=== PATIENT | male | born 1950 | race Caucasian/White ===

== ENCOUNTER 2019-04-06 18:26 | Observation (INO) ==
--- NOTE | 2019-04-06 18:52 | ERNOTE ---
Dyspnea - Date Date of Service: 04/06/19 - General Presenting Symptoms: shortness of breath Time Seen by Provider: 04/06/19 18:33 Source: patient Exam Limitations: no limitations - Immun/Allergies/Home Medications Immunizations: IMMUNIZATION HX Immunizations Up to Date Yes History of Influenza Vaccine Yes Hx Pneumococcal Vaccination Yes Allergies/Adverse Reactions: Allergies cefprozil [From Cefzil] Allergy (Unknown, Verified 04/06/19 18:44) doxycycline Allergy (Unknown, Verified 04/06/19 18:44) PATIENT STATES HE HAS NEVER TAKEN THIS. gatifloxacin [From Tequin] Allergy (Unknown, Verified 04/06/19 18:44) levofloxacin [From Levaquin] Allergy (Unknown, Verified 04/06/19 18:44) prednisone Allergy (Unknown, Verified 04/06/19 18:44) dicyclomine [From Bentyl] Adverse Reaction (Verified 04/06/19 18:44) shakey, nausea Home Medications: HOME MEDICATIONS calcium carbonate 600 mg calcium (1,500 mg) tablet 600 mg PO DAILY tab 12/23/17 [Last Taken Unknown] magnesium 250 mg tablet See Rx Instructions PO DAILY tab 12/23/17 [Last Taken Unknown] multivitamin,sn-btyd-qwfggirc tablet 1 tab PO DAILY 12/23/17 [Last Taken Unknown] potassium 99 mg tablet See Rx Instructions PO DAILY tab 12/23/17 [Last Taken Unknown] azathioprine 50 mg tablet 50 mg PO DAILY #90 tab 06/21/18 [Last Taken Unknown] budesonide-formoterol HFA 160 mcg-4.5 mcg/actuation aerosol inhaler 2 puff IH BID #18 g 06/21/18 [Last Taken Unknown] cefdinir 300 mg capsule 300 mg PO BID #90 cap 06/21/18 [Last Taken Unknown] cetirizine 10 mg capsule 10 mg PO DAILY #90 cap 06/21/18 [Last Taken Unknown] metronidazole 1 % topical gel with pump 1 applic TP DAILY #165 g 06/21/18 [Last Taken Unknown] sulfamethoxazole 800 mg-trimethoprim 160 mg tablet 1 tab PO BID #90 tab 06/21/18 [Last Taken Unknown] triamcinolone acetonide 0.1 % topical cream 1 applic TP BID #240 g 06/21/18 [Last Taken Unknown] lorazepam 0.5 mg tablet 0.5 mg PO .ac and hs #360 tab 10/04/18 [Last Taken Unknown] fluticasone propionate 50 mcg/actuation nasal spray,suspension 2 spray ANASTACIO BID g 12/04/18 [Last Taken Unknown] triamterene 75 mg-hydrochlorothiazide 50 mg tablet 1 tab PO DAILY #90 tab 12/04/18 [Last Taken Unknown] nebulizers See Dose Instructions .ROUTE .MEDSUPPLY #1 ea 03/16/19 [Last Taken Unknown] ipratropium-albuterol 0.5 mg-3 mg(2.5 mg base)/3 mL nebulization soln 3 ml IH TID #270 ml 03/30/19 [Last Taken Unknown] - History of Present Illness Narrative: The patient is a 68 year old male who presents for abnormal PET scan results which he was notified of this evening. There are associated symptoms of productive cough and dyspnea which has worsened over the past 3 days. The patient denies pain. There are no alleviating factors. There are aggravating factors of activity. Previous treatments have included: albuterol inhaler with improvement. The past medical history includes: asthma, emphysema and HTN. The social history is positive for former smoker. The patient has had no ill contacts. Patient had abnormal CT chest on 04/02/19 and today received outpatient PET scan. Patient was notified of interval development of left pneumothorax noted on PET scan. Patient states 3 days ago he was having a harsh coughing episode in which he developed right subconjunctival hematoma to medial aspect of eye after his coughing fit. Patient states following he developed increased dyspnea. Review of Systems - Review of Systems Constitutional: Present: no symptoms reported. Absent: fever, fatigue EYE: Present: no symptoms reported ENT: Present: no symptoms reported. Absent: ear pain, nasal drainage, sore throat Respiratory: Present: shortness of breath, cough, wheezing Cardiology: Present: no symptoms reported. Absent: chest pain Gastrointestinal/Abdominal: Present: no symptoms reported. Absent: nausea, vomiting, diarrhea, abdominal pain Genitourinary: Present: no symptoms reported. Absent: dysuria Musculoskeletal: Present: no symptoms reported Skin: Present: no symptoms reported. Absent: rash Neurological: Present: no symptoms reported. Absent: headache, dizziness/light- headedness All Other Systems: All systems neg except as marked Medical History (Updated 03/13/19 @ 19:36 by Chris Manning MD) Asthma, severe persistent Onset Date: 11/20/11 Autoimmune hepatitis Onset Date: 05/01/11 Chronic rhinitis Onset Date: Unknown Chronic sinusitis Onset Date: Unknown Emphysema lung Onset Date: Unknown Hyperlipidemia Onset Date: 12/15/10 Hypertension Onset Date: Unknown Nail disorder Onset Date: Unknown dystrophic nails Bronchiectasis Onset Date: Unknown Hypersensitivity pneumonitis Onset Date: 12/02/12 Pneumonia Onset Date: ~02/18/0302/2003 (gram negative with pleural effusion) 11/2005 Surgical History: Surgical History (Updated 12/20/17 @ 08:21 by Mary Lou Finn LPN) History of colonoscopy Onset Date: 02/15/07 02/15/07- WNL 12/03/16- WNL Dr Ochoa History of liver biopsy Onset Date: 04/06/11 [facility]-autoimmune hepatitis History of lung surgery Onset Date: Unknown lung biopsy History of vasectomy Onset Date: Unknown Family History: Family History (Updated 12/20/17 @ 08:16 by Mary Lou Finn LPN) Brother Alive and well Brother No problems noted. Father , age 60 Emphysema lung Mother Asthma Dementia History of sinus problem Sister Alive and well Sister Alive and well Social History: (Last Reviewed 04/06/19 @ 20:28 by JENAE Kay) Social History: Marital status: lives independently: Yes household members: none current occupational status: retired current occupation: retired [employer] Service: No Tobacco: Smoking Status: Former smoker Alcohol: alcohol intake: former Substance Use: substance use type: does not use Physical Exam - Physical Exam General Appearance: Present: wd/wn, alert, mild distress Head Exam: Present: normal inspection, no evidence of injury Eye Exam: Normal inspection: left, Other: right - medial subconjunctival hemorrhage Neck: Present: normal inspection, nontender Respiratory: Present: chest tenderness - diffuse anterior tenderness bilateral, accessory muscle use, decreased breath sounds, wheezing - upper inspiratory wheezing bilateral Cardiovascular/Chest: Present: regular rate, rhythm, no murmur Gastrointestinal/Abdominal: Present: normal bowel sounds, nontender, nondistended, soft, no organomegaly Extremity Exam: Present: no edema Neurological Exam: Present: alert, oriented, normal mood/affect, no motor/sensory deficits Skin Exam: Present: normal color, warm/dry Progress - Date and Time Seen: Date and Time: 04/06/19 18:51 Review of PET scan, portable CXR obtained. Consult with , will review and return call for plan of care. 04/06/19 19:03 Discussed case with , findings compatible with apical pneumonia. Due to patients report of dyspnea will discuss with medicine for observation for serial imaging of monitoring. 04/06/19 19:17 Message left for to discuss patient and admission. 04/06/19 20:00 Case discussed with and will admit for observation with repeat CXR tomorrow. notified of consult with . - Vital Signs Patient's Vital Signs:: I have reviewed the patient's vital signs. Vital Signs: Vital Signs 04/06/19 18:35 Temperature 37.3 C Pulse Rate 99 Respiratory Rate 20 Blood Pressure 138/84 O2 Sat by Pulse Oximetry 94 - X-Ray X-Ray #1 X-Ray: chest Interpretation: Reviewed by me X-ray Comments: IMPRESSION: 1. Reidentified left-sided hydropneumothorax 2. Moderate right pleural effusion. 3. Basilar atelectasis bilaterally superimposed upon edema/fluid overload and emphysema Electronically signed by Harpreet Smith M.D.. - Progress/Reassessment Chief Complaint: Dyspnea Departure Clinical Impression: Pneumothorax on left - Departure Disposition: Still a patient Condition: Stable
[2019-04-06] MEDS: ALBUTEROL SULFATE/IPRATROPIUM 3 ML NEBU IH SCH ×2 (20:35→23:59)
[2019-04-07] MEDS: ALBUTEROL SULFATE/IPRATROPIUM 3 ML NEBU IH SCH (06:10)
--- NOTE | 2019-04-07 11:18 | HPDIS ---
Chief Complaint - Chief Complaint Date of Service: 04/07/19 Time of Service: 08:59 Chief Complaint: Abnormal PET scan History of Present Illness: 68-year-old male with a past medical history hypertension, hyperlipidemia, emphysema, autoimmune hepatitis, asthma, hypersensitivity pneumonitis presents from home with complaint of abnormal PET scan. His primary care provider Dr. Rubio De Dios had ordered the PET scan after an abnormal CT chest found a lung nodule. PET scan was positive for a left sided pneumothorax. He then presented to the emergency department. He states he had been having episodes of worsening productive cough for the past few days and had developed a right subconjunctival hemorrhage. He does not follow with a lost charge card clerk. He was admitted for monitoring of the pneumothorax and repeat chest x-ray in the morning. Medical History (Updated 04/07/19 @ 11:18 by Yanet Harris MD) Asthma, severe persistent Onset Date: 11/20/11 Autoimmune hepatitis Onset Date: 05/01/11 Chronic rhinitis Onset Date: Unknown Chronic sinusitis Onset Date: Unknown Emphysema lung Onset Date: Unknown Hyperlipidemia Onset Date: 12/15/10 Hypertension Onset Date: Unknown Nail disorder Onset Date: Unknown dystrophic nails Bronchiectasis Onset Date: Unknown Hypersensitivity pneumonitis Onset Date: 12/02/12 Pneumonia Onset Date: ~02/18/0302/2003 (gram negative with pleural effusion) 11/2005 Surgical History: Surgical History (Updated 04/07/19 @ 11:18 by Yanet Harris MD) History of colonoscopy Onset Date: 02/15/07 02/15/07- WNL 12/03/16- WNL Dr Ochoa History of liver biopsy Onset Date: 04/06/11 [facility]-autoimmune hepatitis History of lung surgery Onset Date: Unknown lung biopsy History of vasectomy Onset Date: Unknown Family History: Family History (Updated 12/20/17 @ 08:16 by Mary Lou Finn LPN) Brother Alive and well Brother No problems noted. Father , age 60 Emphysema lung Mother Asthma Dementia History of sinus problem Sister Alive and well Sister Alive and well Social History: (Last Reviewed 04/06/19 @ 21:07 by Mervin Lopez RN) Social History: Marital status: lives independently: Yes household members: none current occupational status: retired current occupation: retired [employer]: No Tobacco: Smoking Status: Former smoker Alcohol: alcohol intake: former Substance Use: substance use type: does not use Review Of Systems (GEN) - Review of Systems Generalized/Overall Review: Absent: Fever EENTM: Present: Other - Right subconjunctival hemorrhage Respiratory: Present: Cough. Absent: Shortness of Breath Cardiac: Absent: Chest Pain Abdominal: Absent: Abdominal Pain Misc: All systems neg except as marked Immunizations: IMMUNIZATION HX Immunizations Up to Date Yes History of Influenza Vaccine Yes Hx Pneumococcal Vaccination Yes Allergies/Adverse Reactions: Allergies Allergy/AdvReac Type Severity Reaction Status Date / Time cefprozil [From Cefzil] Allergy Unknown Verified 04/06/19 21:10 doxycycline Allergy Unknown Verified 04/06/19 21:10 gatifloxacin [From Tequin] Allergy Unknown Verified 04/06/19 21:10 levofloxacin [From Levaquin] Allergy Unknown Verified 04/06/19 21:10 prednisone Allergy Unknown Verified 04/06/19 21:10 dicyclomine [From Bentyl] AdvReac jacob, Verified 04/06/19 21:10 nausea Home Medications: HOME MEDICATIONS calcium carbonate 600 mg calcium (1,500 mg) tablet 600 mg PO DAILY tab 12/23/17 [Last Taken Unknown] magnesium 250 mg tablet See Rx Instructions PO DAILY tab 12/23/17 [Last Taken Unknown] multivitamin,uz-fers-msiscpup tablet 1 tab PO DAILY 12/23/17 [Last Taken Unknown] potassium 99 mg tablet See Rx Instructions PO DAILY tab 12/23/17 [Last Taken Unknown] azathioprine 50 mg tablet 50 mg PO DAILY #90 tab 06/21/18 [Last Taken Unknown] budesonide-formoterol HFA 160 mcg-4.5 mcg/actuation aerosol inhaler 2 puff IH BID #18 g 06/21/18 [Last Taken Unknown] cefdinir 300 mg capsule 300 mg PO BID #90 cap 06/21/18 [Last Taken Unknown] cetirizine 10 mg capsule 10 mg PO DAILY #90 cap 06/21/18 [Last Taken Unknown] metronidazole 1 % topical gel with pump 1 applic TP DAILY #165 g 06/21/18 [Last Taken Unknown] sulfamethoxazole 800 mg-trimethoprim 160 mg tablet 1 tab PO BID #90 tab 06/21/18 [Last Taken Unknown] triamcinolone acetonide 0.1 % topical cream 1 applic TP BID #240 g 06/21/18 [Last Taken Unknown] lorazepam 0.5 mg tablet 0.5 mg PO .ac and hs #360 tab 10/04/18 [Last Taken Unknown] fluticasone propionate 50 mcg/actuation nasal spray,suspension 2 spray ANASTACIO BID g 12/04/18 [Last Taken Unknown] triamterene 75 mg-hydrochlorothiazide 50 mg tablet 1 tab PO DAILY #90 tab 12/04/18 [Last Taken Unknown] nebulizers See Dose Instructions .ROUTE .MEDSUPPLY #1 ea 03/16/19 [Last Taken Unknown] ipratropium-albuterol 0.5 mg-3 mg(2.5 mg base)/3 mL nebulization soln 3 ml IH TID #270 ml 03/30/19 [Last Taken Unknown] Exam - Exam Vital Signs: Vital Signs - Last Taken Temp 36.6 C 04/07/19 08:11 Pulse 93 04/07/19 08:11 Resp 16 04/07/19 08:11 BP 128/66 04/07/19 08:11 Pulse Ox 93 04/07/19 08:11 Constitutional: Present: Alert, Cooperative, Well developed, Well nourished, No distress, Middle aged ENT Exam: Present: hearing grossly normal, moist mucous membranes Eye Exam: bilateral eye: normal inspection, PERRL, right eye: conjunctivae pale - Subconjunctival hemorrhage Neck: Present: non-tender, supple, trachea midline. Absent: lymphadenopathy (R), lymphadenopathy (L) Back Exam: Present: normal inspection, no CVA tenderness, no vertebral tenderness Respiratory: Present: lungs clear, no respiratory distress, no accessory muscle use, wheezing - Mild expiratory wheeze in lower lung elena. Absent: crackles, rhonchi Cardiovascular/Chest: Present: normal peripheral pulses, regular rate, rhythm, no edema, no murmur Peripheral Pulses: dorsalis-pedis (R): 1+, dorsalis-pedis (L): 1+ Abdomen: Present: Normal bowel sounds, soft, nontender Extremity: Present: no pedal edema Skin Exam: Present: normal color, warm/dry Neurologic: Present: alert, normal mood/affect Appearance: Present: appropriate appearance, appropriate insight Eye contact: Present: cooperative, good eye contact Thoughts: Present: normal thought pattern, normal mood /affect Assessment/Plan - Narrative Narrative: 68-year-old male with a past medical history hypertension, hyperlipidemia, emphysema, autoimmune hepatitis, asthma, hypersensitivity pneumonitis presents from home with complaint of abnormal PET scan. He was admitted for monitoring of the pneumothorax and repeat chest x-ray in the morning. - Assessment/Plan (1) Pneumothorax on left Problem: Acute (2) Emphysema lung Problem: Chronic Qualifiers: Emphysema type: unspecified Qualified Code(s): J43.9 - Emphysema, unspecified (3) Hyperlipidemia Problem: Chronic Qualifiers: Hyperlipidemia type: unspecified Qualified Code(s): E78.5 - Hyperlipidemia, unspecified (4) Benign essential hypertension Problem: Chronic (1) Pneumothorax on left Problem: Acute (2) Emphysema lung Problem: Chronic Qualifiers: Emphysema type: unspecified Qualified Code(s): J43.9 - Emphysema, unspecified (3) Hyperlipidemia Problem: Chronic Qualifiers: Hyperlipidemia type: unspecified Qualified Code(s): E78.5 - Hyperlipidemia, unspecified (4) Benign essential hypertension Problem: Chronic Description of Stay: 68-year-old male with a past medical history hypertension, hyperlipidemia, emp hysema, autoimmune hepatitis, asthma, hypersensitivity pneumonitis presents from home with complaint of abnormal PET scan. His primary care provider Dr. Rubio De Dios had ordered the PET scan after an abnormal CT chest found a lung nodule. PET scan was positive for a left sided pneumothorax. He then presented to the emergency department. He states he had been having episodes of worsening produ ctive cough for the past few days and had developed a right subconjunctival hemorrhage. He does not follow with a lost charge card clerk. He was admitted for monitoring of the pneumothorax and repeat chest x-ray in the morning. Pneumothorax on repeat chest x-ray was unchanged. Vitals remained stable at rest and with ambulation. He is stable to be discharged home today. He will follow-up with his primary care physician within 1 to 2 weeks. He will also follow-up with [place] pul[facility]ology in the next few weeks. Procedures Performed: none Discharge Location: Home Disposition: Home self-care Condition: Stable Discharge Activity: Activity as tolerated Discharge Diet: Low salt Referrals: Chris Manning MD [Primary Care Provider] - Complete Home Medications List: Complete Home Medication List: calcium carbonate 600 mg calcium (1,500 mg) tablet 600 mg PO DAILY tab 12/23/17 magnesium 250 mg tablet See Rx Instructions PO DAILY tab 12/23/17 multivitamin,wo-idhv-ghybhnyk tablet 1 tab PO DAILY 12/23/17 potassium 99 mg tablet See Rx Instructions PO DAILY tab 12/23/17 azathioprine 50 mg tablet 50 mg PO DAILY #90 tab 06/21/18 budesonide-formoterol HFA 160 mcg-4.5 mcg/actuation aerosol inhaler 2 puff IH BID #18 g 06/21/18 cefdinir 300 mg capsule 300 mg PO BID #90 cap 06/21/18 cetirizine 10 mg capsule 10 mg PO DAILY #90 cap 06/21/18 metronidazole 1 % topical gel with pump 1 applic TP DAILY #165 g 06/21/18 sulfamethoxazole 800 mg-trimethoprim 160 mg tablet 1 tab PO BID #90 tab 06/21/18 triamcinolone acetonide 0.1 % topical cream 1 applic TP BID #240 g 06/21/18 lorazepam 0.5 mg tablet 0.5 mg PO .ac and hs #360 tab 10/04/18 fluticasone propionate 50 mcg/actuation nasal spray,suspension 2 spray ANASTACIO BID g 12/04/18 triamterene 75 mg-hydrochlorothiazide 50 mg tablet 1 tab PO DAILY #90 tab 12/04/18 nebulizers See Dose Instructions .ROUTE .MEDSUPPLY #1 ea 03/16/19 ipratropium-albuterol 0.5 mg-3 mg(2.5 mg base)/3 mL nebulization soln 3 ml IH TID #270 ml 03/30/19
[2019-04-07 13:17] VITALS: BP 145/75
== END 2019-04-07 13:20 | disposition home or self-care (01) ==
LOC: MS 18:26 → ER 18:26
PROVIDERS: ADMIT Internal Medicine; ATTEND Internal Medicine
CPT/HCPCS: 71010; 71020; 71045; 71046; 94640; 94664; 99285; G0378

== ENCOUNTER 2019-11-12 17:47 | Observation (INO) ==
--- NOTE | 2019-11-12 18:27 | ERNOTE ---
Dyspnea - General Time Seen by Provider: 11/12/19 17:52 Source: patient Exam Limitations: no limitations - Immun/Allergies/Home Medications Immunizations: IMMUNIZATION HX Immunizations Up to Date Yes History of Influenza Vaccine Yes Hx Pneumococcal Vaccination Yes Allergies/Adverse Reactions: Allergies cefprozil [From Cefzil] Allergy (Unknown, Verified 11/12/19 18:00) doxycycline Allergy (Unknown, Verified 11/12/19 18:00) PATIENT STATES HE HAS NEVER TAKEN THIS. gatifloxacin [From Tequin] Allergy (Unknown, Verified 11/12/19 18:00) levofloxacin [From Levaquin] Allergy (Unknown, Verified 11/12/19 18:00) prednisone Allergy (Unknown, Verified 11/12/19 18:00) dicyclomine [From Bentyl] Adverse Reaction (Verified 11/12/19 18:00) shakey, nausea Home Medications: HOME MEDICATIONS calcium carbonate 600 mg calcium (1,500 mg) tablet 600 mg PO DAILY tab 12/23/17 [Last Taken Unknown] magnesium 250 mg tablet See Rx Instructions PO DAILY tab 12/23/17 [Last Taken Unknown] multivitamin,[id number] 1 tab PO DAILY 12/23/17 [Last Taken Unknown] cetirizine 10 mg capsule 10 mg PO DAILY #90 cap 06/21/18 [Last Taken Unknown] metronidazole 1 % topical gel 1 applic TP DAILY #60 g 04/16/19 [Last Taken Unknown] triamcinolone acetonide 0.1 % topical cream 1 applic TP BID #240 g 04/16/19 [Last Taken Unknown] azathioprine 50 mg tablet 50 mg PO DAILY #90 tab 06/04/19 [Last Taken Unknown] fluticasone furoate 50 mcg/actuation blister powder for inhalation See Rx Instructions IH .COMPLEX #3 ea 06/04/19 [Last Taken Unknown] lorazepam 0.5 mg tablet 0.5 mg PO .ac and hs #120 tab 06/04/19 [Last Taken Unknown] triamterene 75 mg-hydrochlorothiazide 50 mg tablet 1 tab PO DAILY #90 tab 06/04/19 [Last Taken Unknown] fluticasone propionate 50 mcg/actuation nasal spray,suspension 2 spray ANASTACIO BID #3 ea 07/17/19 [Last Taken Unknown] - History of Present Illness Narrative: Patient is coming to the ER for shortness of breath. He has a history of COPD, has a lung nodule that is being monitored with CTs (last one in July 2019), had a spontaneous pneumo March 2019 that resolved with conservative treatment. He states that at least 6 weeks ago he started to have a decreased appetite, felt full easily and has eaten less. He thinks he lost about 20 pounds since, denies any abdominal pain, denies any diarrhea, denies any vomiting. Over the last 2 weeks or so he has had some intermittent shortness of breath, as well as intermittent temperature up to 100 Fahrenheit at times, had a slight cough for a while, but denies a cough currently. Today he is felt so weak that he did not feel like getting out of bed all day. He denies any fever and chills today, denies any pain today. He can walk about long term across the yard before he has to stop shortness of breath. He has not seen a provider recently, last avoided all social contacts due to the current COVID pandemic. He also has a history of autoimmune hepatitis and is taking medication for that. His story is somewhat vague Initiating event: Denies: upper resp illness, out of meds Frequency of episodes: Reports: occassional episodes Modifying Factors - (Improves): Reports: rest Modifying Factors (Worsens): Reports: activity Associated Symptoms-Dyspnea: Reports: fever/chills. Denies: chest pain/discomfort Prior Treatment: Denies: recently seen, currently on antibiotics Review of Systems - Review of Systems Constitutional: Present: fever, chills, malaise, weight loss ENT: Absent: nose congestion, sore throat Respiratory: Present: shortness of breath, cough Cardiology: Absent: chest pain Gastrointestinal/Abdominal: Absent: nausea, vomiting, diarrhea, abdominal pain Musculoskeletal: Absent: back pain Neurological: Present: weakness - generalized. Absent: headache Medical History (Last Reviewed 11/12/19 @ 18:18 by Lovely Huynh MD) Asthma, severe persistent Onset Date: 11/20/11 Autoimmune hepatitis Onset Date: 05/01/11 Chronic rhinitis Onset Date: Unknown Chronic sinusitis Onset Date: Unknown Emphysema lung Onset Date: Unknown Hyperlipidemia Onset Date: 12/15/10 Hypertension Onset Date: Unknown Nail disorder Onset Date: Unknown dystrophic nails Bronchiectasis Onset Date: Unknown Hypersensitivity pneumonitis Onset Date: 12/02/12 Pneumonia Onset Date: ~02/18/0302/2003 (gram negative with pleural effusion) 11/2005 Surgical History: Surgical History (Last Reviewed 11/12/19 @ 18:18 by Lovely Huynh MD) History of colonoscopy Onset Date: 02/15/07 02/15/07- WNL 12/03/16- WNL Dr Ochoa History of liver biopsy Onset Date: 04/06/11 [facility]-autoimmune hepatitis History of lung surgery Onset Date: Unknown lung biopsy History of vasectomy Onset Date: Unknown Family History: Family History (Last Reviewed 11/12/19 @ 18:13 by Sam Riddle, MEGHA) Brother Alive and well Brother No problems noted. Father , age 60 Emphysema lung Mother Asthma Dementia History of sinus problem Sister Alive and well Sister Alive and well Social History: (Last Reviewed 11/12/19 @ 18:13 by Sam Riddle, MEGHA) Social History: Marital status: lives independently: Yes household members: none current occupational status: retired current occupation: retired [employer] Service: No Tobacco: Smoking Status: Former smoker Alcohol: alcohol intake: former Substance Use: substance use type: does not use Physical Exam - Physical Exam General Appearance: Present: wd/wn, alert, mild distress, thin Head Exam: Present: normal inspection Eye Exam: Normal inspection: bilateral, PERRL: bilateral Respiratory: Present: no accessory muscle use, lungs clear, decreased breath sounds, other - increased breathing rate to 20-low 30's Cardiovascular/Chest: Present: no murmur, tachycardia Gastrointestinal/Abdominal: Present: normal bowel sounds, nontender, nondistended, soft Extremity Exam: Present: no edema Neurological Exam: Present: alert, oriented, normal mood/affect Skin Exam: Present: normal color, warm/dry Progress - Results and Orders Patient's Lab Results:: I have reviewed the patient's lab results. - Vital Signs Patient's Vital Signs:: I have reviewed the patient's vital signs. Vital Signs: Vital Signs 11/12/19 17:52 Temperature 38.1 C H Pulse Rate 117 H Respiratory Rate 46 H Blood Pressure 138/70 O2 Sat by Pulse Oximetry 88 L - EKG EKG #1 EKG: NSR - sinustachycardia, other - short ND intervl, prominent T, LVH EKG read: Interp. by me - X-Ray X-Ray #1 X-Ray: chest - chronic changes Interpretation: Interp. by me, Reviewed by me - Progress/Reassessment Chief Complaint: Dyspnea Progress Note-Subjective: 11/12/19 18:00 patient initial O2 sat 88% on arrival in room, 90-92% on room air after resting 11/12/19 19:43 discussed with stan Bryant to admit for observation for COPD exacerbation as patient has multiple allergies, give zithromax 11/12/19 20:00 discussed with patient, stan to get admitted Departure Clinical Impression: COPD exacerbation, Hypoxemia - Departure Disposition: Home self-care Condition: Stable
[2019-11-12] MEDS ORDERED: ACETAMINOPHEN 325 MG TABLET PO ONE (18:31)
[2019-11-12 18:38] LABS: Hematocrit 36.5 % (42.0-52.0); Hemoglobin 11.8 gm/dL (13.5-18.0); Mean Cell Volume 85.5 fl (78-100); Mean Corpuscular Hemoglobin 27.6 pg (27-31); Mean Corpuscular Hgb Conc 32.3 g/dl (32-36); Mean Platelet Volume 8.9 fl (8-11.3); Neutrophil # 6.2 K/mm3 (1.3-6.0); Neutrophil % 90.8 % (42-75.0); Platelet Count 328 K/mm3 (150-450); Red Blood Count 4.27 M/mm3 (4.7-6.0); Red Cell Distribution Width 14.5 % (11.5-14.0); White Blood Count 6.9 K/mm3 (4.0-10.5)
[2019-11-12 18:57] LABS: Troponin I Less than 0.017 ng/mL (0.00-0.10)
[2019-11-12 18:58] LABS: ALT 17 U/L (19-67); AST 21 U/L (0-48); Albumin * 2.6 gm/dl (3.4-5.0); Alkaline Phosphatase * 75 U/L (50-170); Anion Gap 13.8 mmol/L (6.8-13.8); BNP * 238 pg/mL (5-350); BUN/Creatinine Ratio 22.1 (9.0-21.6); Bilirubin, Total 0.5 mg/dL (0.0-1.1); Blood Urea Nitrogen 32 mg/dL (6-23); Ca. Corrected For Albumin 9.4 mg/dL (8.4-10.2); Calcium * 8.6 mg/dL (7.9-10.9); Carbon Dioxide 29.1 mmol/L (24-32.6); Chloride 97 mmol/L (97-106); Glucose * 108 mg/dL (70-110); Potassium 3.9 mmol/L (3.4-4.6); Sodium 136 mmol/L (132-142); Total Protein 8.5 gm/dL (6.2-8.2)
[2019-11-12] MEDS: AZITHROMYCIN 250 MG TABLET PO SCH (20:47)
[2019-11-12] MEDS ORDERED: ACETAMINOPHEN 325 MG TABLET PO PRN (22:21)
--- NOTE | 2019-11-13 09:27 | HPDIS ---
Chief Complaint - Chief Complaint Date of Service: 11/13/19 Time of Service: 08:40 Chief Complaint: Fatigue, loss of appetite and shortness of breath times several weeks History of Present Illness: 69-year-old male with a past medical history of COPD, hypertension, hyperlipidemia, autoimmune hepatitis presents from home with complaints of fatigue, loss of appetite and shortness of breath progressively worsening over the past few weeks. He also stated he had occasional episodes of fever between. 100.4 and 100.6 in the emergency department he was found to be tachypneic between 36 and 46, hypoxic with oxygen saturation of 88%, and febrile with temperature of 38.1. Chest x-ray showed bilateral perihilar and bibasilar heterogeneous opacities, similar to prior exam likely related to chronic lung changes. Superimposed infection not completely excluded however no definitive new consolidations were visualized. He was started on azithromycin in the emergency department. Medical History (Last Reviewed 11/12/19 @ 21:45 by Radha Saxena RN) Asthma, severe persistent Onset Date: 11/20/11 Autoimmune hepatitis Onset Date: 05/01/11 Chronic rhinitis Onset Date: Unknown Chronic sinusitis Onset Date: Unknown Emphysema lung Onset Date: Unknown Hyperlipidemia Onset Date: 12/15/10 Hypertension Onset Date: Unknown Nail disorder Onset Date: Unknown dystrophic nails Bronchiectasis Onset Date: Unknown Hypersensitivity pneumonitis Onset Date: 12/02/12 Pneumonia Onset Date: ~02/18/0302/2003 (gram negative with pleural effusion) 11/2005 Surgical History: Surgical History (Last Reviewed 11/12/19 @ 21:45 by Radha Saxena RN) History of colonoscopy Onset Date: 02/15/07 02/15/07- WNL 12/03/16- WNL Dr Ochoa History of liver biopsy Onset Date: 04/06/11 [facility]-autoimmune hepatitis History of lung surgery Onset Date: Unknown lung biopsy History of vasectomy Onset Date: Unknown Family History: Family History (Last Reviewed 11/12/19 @ 21:45 by Radha Saxena RN) Brother Alive and well Brother No problems noted. Father , age 60 Emphysema lung Mother Asthma Dementia History of sinus problem Sister Alive and well Sister Alive and well Social History: (Last Reviewed 11/12/19 @ 18:13 by Sam Riddle RN) Social History: Marital status: lives independently: Yes household members: none current occupational status: retired current occupation: retired [employer] Service: No Tobacco: Smoking Status: Former smoker Alcohol: alcohol intake: former Substance Use: substance use type: does not use Review Of Systems (GEN) - Review of Systems Generalized/Overall Review: Present: Fever, Fatigue Respiratory: Present: Shortness of Breath. Absent: Cough Cardiac: Absent: Chest Pain Abdominal: Absent: Nausea, Vomiting, Abdominal Pain Misc: All systems neg except as marked Immunizations: IMMUNIZATION HX Immunizations Up to Date Yes History of Influenza Vaccine Yes Hx Pneumococcal Vaccination Yes Allergies/Adverse Reactions: Allergies Allergy/AdvReac Type Severity Reaction Status Date / Time cefprozil [From Cefzil] Allergy Unknown Verified 11/12/19 18:00 doxycycline Allergy Unknown Verified 11/12/19 18:00 gatifloxacin [From Tequin] Allergy Unknown Verified 11/12/19 18:00 levofloxacin [From Levaquin] Allergy Unknown Verified 11/12/19 18:00 prednisone Allergy Unknown Verified 11/12/19 18:00 dicyclomine [From Bentyl] AdvReac mpkey, Verified 11/12/19 18:00 nausea Home Medications: HOME MEDICATIONS calcium carbonate 600 mg calcium (1,500 mg) tablet 600 mg PO DAILY tab 12/23/17 [Last Taken Unknown] magnesium 250 mg tablet See Rx Instructions PO DAILY tab 12/23/17 [Last Taken Unknown] cetirizine 10 mg capsule 10 mg PO DAILY #90 cap 06/21/18 [Last Taken Unknown] azathioprine 50 mg tablet 50 mg PO DAILY #90 tab 06/04/19 [Last Taken Unknown] lorazepam 0.5 mg tablet 0.5 mg PO .ac and hs #120 tab 06/04/19 [Last Taken Unknown] triamterene 75 mg-hydrochlorothiazide 50 mg tablet 1 tab PO DAILY #90 tab 06/04/19 [Last Taken Unknown] fluticasone propionate 50 mcg/actuation nasal spray,suspension 2 spray ANASTACIO BID #3 ea 07/17/19 [Last Taken Unknown] Fluticasone Furoate [Arnuity Ellipta] See Rx Instructions INHALATION DAILY 11/12/19 [Last Taken Unknown] Azithromycin [Zithromax] 500 mg PO DAILY #2 tab 11/13/19 [Last Taken Unknown] Exam - Exam Vital Signs: Vital Signs - Last Taken Temp 36.4 C 11/13/19 07:56 Pulse 76 11/13/19 07:56 Resp 32 H 11/13/19 07:56 BP 116/66 11/13/19 07:56 Pulse Ox 93 11/13/19 07:56 Constitutional: Present: Alert, Cooperative, Well developed, Well nourished, No distress ENT Exam: Present: hearing grossly normal Eye Exam: bilateral eye: EOMI Neck: Present: non-tender, supple. Absent: lymphadenopathy (R), lymphadenopathy (L) Back Exam: Present: normal inspection, no CVA tenderness, no vertebral tenderness Respiratory: Present: lungs clear, no respiratory distress, no accessory muscle use, No wheezing. Absent: crackles, rhonchi Cardiovascular/Chest: Present: normal peripheral pulses, regular rate, rhythm, no edema, no murmur Peripheral Pulses: dorsalis-pedis (R): 1+, dorsalis-pedis (L): 1+ Abdomen: Present: Normal bowel sounds, soft, nontender Extremity: Present: no pedal edema Skin Exam: Present: normal color, warm/dry Neurologic: Present: alert, normal mood/affect Appearance: Present: appropriate appearance, appropriate insight Eye contact: Present: cooperative Thoughts: Present: normal thought pattern, normal mood /affect Diagnostic Studies: Abnormal Lab Results 11/12/19 11/12/19 11/12/19 Range/Units 18:08 18:35 18:40 RBC 4.27 L (4.7-6.0) M/mm3 Hgb 11.8 L (13.5-18.0) gm/dL Hct 36.5 L (42.0-52.0) % RDW 14.5 H (11.5-14.0) % Neutrophils % 90.8 H (42-75.0) % Lymphocytes % 0.6 L (20-51) % Neutrophils # 6.2 H (1.3-6.0) K/mm3 Lymphocytes # 0.04 L (1.5-3.5) k/mm3 BUN 32 H (6-23) mg/dL Creatinine 1.45 H (0.4-1.4) mg/dL Est GFR (Non-Af Amer) 52 L (60-130) mL/min BUN/Creatinine Ratio 22.1 H (9.0-21.6) ALT 17 L (19-67) U/L C-Reactive Prot, Quant 18.6 H (0.0-0.9) mg/dL Total Protein 8.5 H (6.2-8.2) gm/dL Albumin 2.6 L (3.4-5.0) gm/dl Laboratory Results WBC 6.9 K/mm3 (4.0-10.5) 11/12/19 18:08 RBC 4.27 M/mm3 (4.7-6.0) L 11/12/19 18:08 Hgb 11.8 gm/dL (13.5-18.0) L 11/12/19 18:08 Hct 36.5 % (42.0-52.0) L 11/12/19 18:08 MCV 85.5 fl (78-100) 11/12/19 18:08 MCH 27.6 pg (27-31) 11/12/19 18:08 MCHC 32.3 g/dl (32-36) 11/12/19 18:08 RDW 14.5 % (11.5-14.0) H 11/12/19 18:08 Plt Count 328 K/mm3 (150-450) 11/12/19 18:08 MPV 8.9 fl (8-11.3) 11/12/19 18:08 Immature Gran % (Auto) 0.30 % (0.001-0.429) 11/12/19 18:08 Immature Gran # (Auto) 0.02 K/mm3 (0.000-0.0310) 11/12/19 18:08 Neutrophils % 90.8 % (42-75.0) H 11/12/19 18:08 Lymphocytes % 0.6 % (20-51) L 11/12/19 18:08 Monocytes % 7.3 % (0.0-9) 11/12/19 18:08 Eosinophils % 0.6 % (0.0-3.0) 11/12/19 18:08 Basophils % 0.4 % (0.0-1.0) 11/12/19 18:08 Nucleated RBC % 0.0 k/mm3 (0-1) 11/12/19 18:08 Neutrophils # 6.2 K/mm3 (1.3-6.0) H 11/12/19 18:08 Lymphocytes # 0.04 k/mm3 (1.5-3.5) L 11/12/19 18:08 Monocytes # 0.5 k/mm3 (0.0-1.0) 11/12/19 18:08 Eosinophils # 0.0 k/mm3 (0.0-0.7) 11/12/19 18:08 Absolute Basophils 0.0 k/mm3 (0.0-0.1) 11/12/19 18:08 Sodium 136 mmol/L (132-142) 11/12/19 18:35 Plasma Sodium 136 mmol/L (130-142) 11/12/19 18:35 Potassium 3.9 mmol/L (3.4-4.6) 11/12/19 18:35 Chloride 97 mmol/L (97-106) 11/12/19 18:35 Carbon Dioxide 29.1 mmol/L (24-32.6) 11/12/19 18:35 Anion Gap 13.8 mmol/L (6.8-13.8) 11/12/19 18:35 BUN 32 mg/dL (6-23) H 11/12/19 18:35 Creatinine 1.45 mg/dL (0.4-1.4) H 11/12/19 18:35 Est GFR (Non-Af Amer) 52 mL/min (60-130) L 11/12/19 18:35 BUN/Creatinine Ratio 22.1 (9.0-21.6) H 11/12/19 18:35 Random Glucose 108 mg/dL (70-110) 11/12/19 18:35 Calcium 8.6 mg/dL (7.9-10.9) 11/12/19 18:35 Calcium Adj for Albumin 9.4 mg/dL (8.4-10.2) 11/12/19 18:35 Total Bilirubin 0.5 mg/dL (0.0-1.1) 11/12/19 18:35 AST 21 U/L (0-48) 11/12/19 18:35 ALT 17 U/L (19-67) L 11/12/19 18:35 Alkaline Phosphatase 75 U/L (50-170) 11/12/19 18:35 Troponin I Less than 0.017 ng/mL (0.00-0.10) 11/12/19 18:35 C-Reactive Prot, Quant 18.6 mg/dL (0.0-0.9) H 11/12/19 18:40 B-Natriuretic Peptide 238 pg/mL (5-350) 11/12/19 18:35 Total Protein 8.5 gm/dL (6.2-8.2) H 11/12/19 18:35 Albumin 2.6 gm/dl (3.4-5.0) L 11/12/19 18:35 Assessment/Plan - Narrative Narrative: 69-year-old male with a past medical history of COPD, hypertension, hyperlipidemia, autoimmune hepatitis presents from home with complaints of fatigue, loss of appetite and shortness of breath progressively worsening over the past few weeks. He also stated he had occasional episodes of fever between. 100.4 and 100.6 in the emergency department he was found to be tachypneic between 36 and 46, hypoxic with oxygen saturation of 88%, and febrile with temperature of 38.1. Chest x-ray showed bilateral perihilar and bibasilar heterogeneous opacities, similar to prior exam likely related to chronic lung changes. Superimposed infection not completely excluded however no definitive new consolidations were visualized. He was started on azithromycin in the emergency department. Plan #1 continue with azithromycin 500 mg daily x3 doses total #2 resume home medications for comorbidities #3 wean off of oxygen - Assessment/Plan (1) CAP (community acquired pneumonia) Problem: Suspected Qualifiers: Laterality: unspecified laterality Qualified Code(s): J18.9 - Pneumonia, unspecified organism (2) COPD (chronic obstructive pulmonary disease) Problem: Acute (3) Autoimmune hepatitis Problem: Chronic (4) Hyperlipidemia Problem: Chronic Qualifiers: Hyperlipidemia type: unspecified Qualified Code(s): E78.5 - Hyperlipidemia, unspecified (5) Benign essential hypertension Problem: Chronic (6) Hypoxia Problem: Acute (7) Tachypnea Problem: Acute (8) Fever Problem: Acute (1) CAP (community acquired pneumonia) Problem: Suspected Qualifiers: Laterality: unspecified laterality Qualified Code(s): J18.9 - Pneumonia, unspecified organism (2) COPD (chronic obstructive pulmonary disease) Problem: Chronic Qualifiers: COPD type: emphysema (3) Autoimmune hepatitis Problem: Chronic (4) Hyperlipidemia Problem: Chronic Qualifiers: Hyperlipidemia type: unspecified Qualified Code(s): E78.5 - Hyperlipidemia, unspecified (5) Benign essential hypertension Problem: Chronic (6) Hypoxia Problem: Acute (7) Tachypnea Problem: Acute (8) Fever Problem: Acute Qualifiers: Encounter type: initial encounter Hospital Course: 69-year-old male with a past medical history of COPD, hypertension, hyperlipidemia, autoimmune hepatitis presents from home with complaints of fatigue, loss of appetite and shortness of breath progressively worsening over the past few weeks. He also stated he had occasional episodes of fever between. 100.4 and 100.6 in the emergency department he was found to be tachypneic between 36 and 46, hypoxic with oxygen saturation of 88%, and febrile with temperature of 38.1. Chest x-ray showed bilateral perihilar and bibasilar heterogeneous opacities, similar to prior exam likely related to chronic lung changes. Superimposed infection not completely excluded however no definitive new consolidations were visualized. He was started on azithromycin in the emergency department. He is seen off of oxygen and oxygen saturation is 93-96% on room air this morning. He ate breakfast and is feeling better than when he came in. He is stable to be discharged home today and follow-up with his PCP within 1 to 2 weeks of discharge. He will complete the course of azithromycin. Procedures Performed: none Results and Findings: Lab Pending Results 11/12/19 18:08: WBC 6.9, RBC 4.27 L, Hgb 11.8 L, Hct 36.5 L, MCV 85.5, MCH 27.6, MCHC 32.3, RDW 14.5 H, Plt Count 328, MPV 8.9, Immature Gran % (Auto) 0.30, Immature Gran # (Auto) 0.02, Neutrophils % 90.8 H, Lymphocytes % 0.6 L, Monocytes % 7.3, Eosinophils % 0.6, Basophils % 0.4, Nucleated RBC % 0.0, Neutrophils # 6.2 H, Lymphocytes # 0.04 L, Monocytes # 0.5, Eosinophils # 0.0, Absolute Basophils 0.0 11/12/19 18:35: Sodium 136, Plasma Sodium 136, Potassium 3.9, Chloride 97, Carbon Dioxide 29.1, Anion Gap 13.8, BUN 32 H, Creatinine 1.45 H, Est GFR (Non- Af Amer) 52 L, BUN/Creatinine Ratio 22.1 H, Random Glucose 108, Calcium 8.6, Calcium Adj for Albumin 9.4, Total Bilirubin 0.5, AST 21, ALT 17 L, Alkaline Phosphatase 75, Troponin I Less than 0.017, B-Natriuretic Peptide 238, Total Protein 8.5 H, Albumin 2.6 L 11/12/19 18:40: C-Reactive Prot, Quant 18.6 H Discharge Location: Home Disposition: Home self-care Condition: Stable Discharge Activity: Activity as tolerated Discharge Diet: General/regular food Referrals: Chris Manning MD [Primary Care Provider] - Prescriptions (Any new or edited meds): Azithromycin [Zithromax] 500 mg PO DAILY #2 tab Transmission Status: Pending to [facility], [place], [place] Complete Home Medications List: Complete Home Medication List: calcium carbonate 600 mg calcium (1,500 mg) tablet 600 mg PO DAILY tab 12/23/17 magnesium 250 mg tablet See Rx Instructions PO DAILY tab 12/23/17 cetirizine 10 mg capsule 10 mg PO DAILY #90 cap 06/21/18 azathioprine 50 mg tablet 50 mg PO DAILY #90 tab 06/04/19 lorazepam 0.5 mg tablet 0.5 mg PO .ac and hs #120 tab 06/04/19 triamterene 75 mg-hydrochlorothiazide 50 mg tablet 1 tab PO DAILY #90 tab 06/04/19 fluticasone propionate 50 mcg/actuation nasal spray,suspension 2 spray ANASTACIO BID #3 ea 07/17/19 Fluticasone Furoate [Arnuity Ellipta] See Rx Instructions INHALATION DAILY 11/12/19 Azithromycin [Zithromax] 500 mg PO DAILY #2 tab 11/13/19
[2019-11-13] MEDS ORDERED: azaTHIOprine 50 MG TABLET PO SCH (09:30)
[2019-11-13] MEDS ORDERED: LORATADINE 10 MG TABLET PO SCH (09:30)
[2019-11-13] MEDS ORDERED: FLUTICASONE PROPIONATE 120 SPRAY INHALER NS SCH (09:30)
[2019-11-13] MEDS ORDERED: TRIAMTERENE/HYDROCHLOROTHIAZID 1 TAB TABLET PO SCH (09:30)
[2019-11-13] MEDS ORDERED: CALCIUM CARBONATE 600 MG PO SCH (09:30)
[2019-11-13] MEDS ORDERED: MAGNESIUM PO SCH (09:30)
[2019-11-13] MEDS: AZITHROMYCIN 250 MG TABLET PO SCH (09:49)
[2019-11-13] MEDS ORDERED: BUDESONIDE 0.5 MG/2 ML VIAL.NEB IH SCH (10:30)
[2019-11-13] MEDS ORDERED: CALCIUM CARBONATE/VITAMIN D3 1 TAB TABLET PO SCH (10:30)
[2019-11-13 14:21] VITALS: BP 124/74
[2019-11-14] MEDS ORDERED: MAGNESIUM PO SCH (09:00)
== END 2019-11-13 13:50 | disposition home or self-care (01) ==
LOC: ER 17:47 → MS 17:47
PROVIDERS: ADMIT Internal Medicine; ATTEND Allergy & Immunology
CPT/HCPCS: 36415; 71020; 71046; 80053; 83519; 83880; 84484; 85025; 86140; 93005; 94760; 99284; 99285; G0378; U0001